=== PATIENT | female | born 1960 | race African-American/Black ===

== ENCOUNTER 2016-09-12 12:18 | Emergency (ER) | payer MEDICAID ==
[~2016-09-12] VITALS: Ht 152.4 cm; Wt 59.0 kg
[~2016-09-12 12:18] MED LIST: ASPI81CH49; LEVO750T3 PO; LIS10T PO; LORA-655; SACC250C PO
[2016-09-12 13:34] LABS: Urine Bilirubin Negative (Negative); Urine Blood TRACE /uL (Negative); Urine Color Yellow (Yellow); Urine Glucose Normal (Normal); Urine Hyaline Cast MANY /lpf (0 - 2); Urine Ketone Negative (Negative); Urine Mucus FEW (None Seen); Urine Nitrite Negative (Negative); Urine RBC 42 /hpf (0 - 4); Urine Squamous Epithelial Cell MANY /hpf (<5); Urine Urobilinogen Normal (Negative); Urine WBC Clumps PRESENT /hpf (None Seen); Urine pH 7.5 (5.0-8.0)
[2016-09-12] MEDS ORDERED: cefTRIAXone 1GM/50ML D5W 50 ML IV ONE (15:45)
[2016-09-12] MEDS ORDERED: KETOROLAC TROMETH 30 MG/ML 1ML VIAL IV ONE (15:45)
[2016-09-12 16:10] VITALS: BP 172/96
== END 2016-09-12 16:24 | disposition home or self-care (01) ==
LOC: EDBD 12:18 → ER 12:18
DX: S16.1XXA Strain of muscle, fascia and tendon at neck level, initial encounter (principal); S50.11XA Contusion of right forearm, initial encounter; S20.211A Contusion of right front wall of thorax, initial encounter; M50.30 Other cervical disc degeneration, unspecified cervical region; N39.0 Urinary tract infection, site not specified; J45.909 Unspecified asthma, uncomplicated; I10 Essential (primary) hypertension; Z90.49 Acquired absence of other specified parts of digestive tract; F17.210 Nicotine dependence, cigarettes, uncomplicated; F12.10 Cannabis abuse, uncomplicated; M25.561 Pain in right knee; V43.62XA Car passenger injured in collision with other type car in traffic accident, initial encounter; Y93.89 Activity, other specified; Y99.8 Other external cause status; Y92.89 Other specified places as the place of occurrence of the external cause
CPT/HCPCS: 71111; 72040; 73080; 73562; 81001; 96365; 96375; 99285; J0696; J1885

== ENCOUNTER 2017-03-20 00:48 | Emergency (ER) | payer MEDICAID ==
[~2017-03-20] VITALS: Ht 154.9 cm; Wt 68.0 kg
[~2017-03-20 00:48] MED LIST changes: +ATOR20TA50 PO; +CIP500T PO; -LEVO750T3 PO; +OMEP20CA74 PO; -SACC250C PO
[2017-03-20 02:01] LABS: Basophils # (auto) 0.1 uL; Eosinophils # (auto) 0.4 uL; Monocytes # (auto) 0.6 uL; Monocytes % (auto) 5.4 % (0.0-12.0); Neutrophils # (auto) 8.6 uL; Nucleated Red Blood Cells % 0.1 %; White Blood Cell 11.8 10^3/uL (4.4-10.8)
[2017-03-20 02:02] LABS: Basophils % (auto) 0.6 % (0.0-2.0); Eosinophils % (auto) 3.7 % (0.0-7.0); Hematocrit 38.2 % (36.0-46.0); Hemoglobin 11.8 g/dL (12.2-16.2); Lymphocytes # (auto) 2.1 uL; Lymphocytes % (auto) 17.4 % (10.0-50.0); Mean Corpuscular Hemoglobin 22.6 pg (28.0-32.0); Mean Corpuscular Hgb Conc. 30.9 g/dL (32.0-36.0); Mean Corpuscular Volume 73.4 fL (80.0-100.0); Neutrophils % (auto) 72.9 % (37.0-80.0); Platelet Count (auto) 238 10^3/uL (140-450); Red Blood Cells 5.21 10^6/uL (4.0-5.20); Red Cell Distribution Width 13.7 % (11.8-14.3)
[2017-03-20 02:09] LABS: Urine Bacteria MOD /hpf (None Seen); Urine Blood Negative /uL (Negative); Urine Mucus FEW (None Seen); Urine Specific Gravity 1.021 (1.001-1.035); Urine WBC 238 /hpf (0 - 5)
[2017-03-20 02:27] LABS: Albumin 3.5 g/dL (3.4-5.0); BUN/Creatinine Ratio 21.5; Bilirubin, Total 0.3 mg/dL (0.2-1.0); Calcium 8.9 mg/dL (8.5-10.1); Potassium 3.3 mmol/L (3.5-5.1); Total Protein 7.3 g/dL (6.4-8.2)
[2017-03-20] MEDS ORDERED: SODIUM CHLORIDE 0.9% 1,000 ML IV ONE (03:00)
[2017-03-20 04:00] VITALS: BP 119/72
[2017-03-20] MEDS ORDERED: cefTRIAXone 1GM/50ML D5W 50 ML IV ONE (04:00)
== END 2017-03-20 05:19 | disposition home or self-care (01) ==
LOC: EDBD 00:48 → ER 00:51
DX: N39.0 Urinary tract infection, site not specified (principal); I10 Essential (primary) hypertension; J45.909 Unspecified asthma, uncomplicated; F17.210 Nicotine dependence, cigarettes, uncomplicated; R51 Headache; Z86.73 Personal history of transient ischemic attack (TIA), and cerebral infarction without residual deficits; Z79.899 Other long term (current) drug therapy
CPT/HCPCS: 36415; 70450; 74176; 80053; 81001; 83690; 83735; 85025; 96365; 99285; J0696; J7030; 93005

== ENCOUNTER 2017-06-17 02:49 | Emergency (ER) | payer MEDICAID ==
[~2017-06-17] VITALS: Ht 160 cm; Wt 54.4 kg
[2017-06-17 03:34] VITALS: BP 130/85
[2017-06-17 03:41] LABS: Eosinophils # (auto) 0.2 uL; Lymphocytes # (auto) 2.9 uL; Monocytes # (auto) 0.5 uL
[2017-06-17 03:42] LABS: Basophils # (auto) 0 uL; Basophils % (auto) 0.7 % (0.0-2.0); Hematocrit 38.6 % (36.0-46.0); Hemoglobin 12.3 g/dL (12.2-16.2); Lymphocytes % (auto) 48.8 % (10.0-50.0); Mean Corpuscular Hemoglobin 23.1 pg (28.0-32.0); Mean Corpuscular Hgb Conc. 31.9 g/dL (32.0-36.0); Mean Corpuscular Volume 72.4 fL (80.0-100.0); Monocytes % (auto) 7.9 % (0.0-12.0); Neutrophils # (auto) 2.3 uL; Neutrophils % (auto) 38.6 % (37.0-80.0); Platelet Count (auto) 193 10^3/uL (140-450); Red Blood Cells 5.33 10^6/uL (4.0-5.20); Red Cell Distribution Width 14.8 % (11.8-14.3); White Blood Cell 5.9 10^3/uL (4.4-10.8)
[2017-06-17 04:07] LABS: Alanine Aminotransferase 16 U/L (13-56); Albumin 3.7 g/dL (3.4-5.0); Alkaline Phosphatase 65 U/L (45-117); Anion Gap 8 (5-15); Aspartate Aminotransferase 10 U/L (15-37); BUN/Creatinine Ratio 32.1; Bilirubin, Total 0.5 mg/dL (0.2-1.0); Blood Alcohol < 3.0 mg/dL (0-5); Blood Urea Nitrogen 18 mg/dL (7-18); Calcium 9.4 mg/dL (8.5-10.1); Carbon Dioxide 28 mmol/L (21-32); Chloride 107 mmol/L (98-107); GFR African American 144 mL/min; GFR Non-African American 119 mL/min; Glucose 96 mg/dL (74-106); Magnesium 2.4 mg/dL (1.6-2.6); Potassium 3.5 mmol/L (3.5-5.1); Sodium 143 mmol/L (136-145); Total Protein 7.4 g/dL (6.4-8.2)
[2017-06-17 04:09] LABS: Acetaminophen < 2.0 ug/mL (10-30); Salicylate < 1.7 mg/dL (2.8-20.0)
[2017-06-17 04:42] LABS: INR 0.98 (0.9-1.15); Prothrombin Time 10.7 sec (9.37-12.3)
== END 2017-06-17 06:04 | disposition home or self-care (01) ==
LOC: EDBD 02:49 → ER 02:52
DX: R41.82 Altered mental status, unspecified (principal); F41.9 Anxiety disorder, unspecified; J45.909 Unspecified asthma, uncomplicated; I10 Essential (primary) hypertension; I25.2 Old myocardial infarction; R51 Headache; F17.210 Nicotine dependence, cigarettes, uncomplicated; Z79.899 Other long term (current) drug therapy; Z79.82 Long term (current) use of aspirin; Z86.73 Personal history of transient ischemic attack (TIA), and cerebral infarction without residual deficits; Z90.49 Acquired absence of other specified parts of digestive tract
CPT/HCPCS: 36415; 70450; 71045; 80053; 80320; 80329; 83735; 83880; 84484; 85025; 85379; 85610; 85730; 93005; 94761

== ENCOUNTER 2017-10-27 00:07 | Inpatient (IN) | payer MEDICAID ==
[~2017-10-27] VITALS: Ht 162.6 cm; Wt 51.8 kg
[2017-10-27 01:00] LABS: Basophils # (auto) 0 uL; Basophils % (auto) 0.2 % (0.0-2.0); Eosinophils # (auto) 0 uL; Eosinophils % (auto) 0.2 % (0.0-7.0); Hematocrit 34.8 % (36.0-46.0); Hemoglobin 10.9 g/dL (12.2-16.2); Lymphocytes # (auto) 1.2 uL; Lymphocytes % (auto) 7.5 % (10.0-50.0); Mean Corpuscular Hemoglobin 22.3 pg (28.0-32.0); Mean Corpuscular Hgb Conc. 31.3 g/dL (32.0-36.0); Mean Corpuscular Volume 71.2 fL (80.0-100.0); Monocytes # (auto) 1.9 uL; Monocytes % (auto) 11.9 % (0.0-12.0); Neutrophils # (auto) 12.8 uL; Neutrophils % (auto) 80.2 % (37.0-80.0); Platelet Count (auto) 209 10^3/uL (140-450); Red Blood Cells 4.89 10^6/uL (4.0-5.20); Red Cell Distribution Width 14.5 % (11.8-14.3)
[2017-10-27 01:19] LABS: Alanine Aminotransferase 17 U/L (13-56); Albumin 2.8 g/dL (3.4-5.0); Anion Gap 10 (5-15); Aspartate Aminotransferase 13 U/L (15-37); BUN/Creatinine Ratio 30.8; Blood Urea Nitrogen 16 mg/dL (7-18); Calcium 8.3 mg/dL (8.5-10.1); Carbon Dioxide 23 mmol/L (21-32); Chloride 106 mmol/L (98-107); GFR African American 156 mL/min; GFR Non-African American 129 mL/min; Glucose 125 mg/dL (74-106); Potassium 3.1 mmol/L (3.5-5.1); Sodium 139 mmol/L (136-145)
[2017-10-27 01:24] LABS: Alkaline Phosphatase 67 U/L (45-117); Total Protein 6.8 g/dL (6.4-8.2)
[2017-10-27] MEDS ORDERED: SODIUM CHLORIDE 0.9% 1,000 ML IV ONE (01:45)
[2017-10-27 02:42] LABS: Urine Bacteria MANY /hpf (None Seen); Urine Blood 1+ /uL (Negative); Urine Mucus FEW (None Seen); Urine Specific Gravity 1.018 (1.001-1.035); Urine WBC 325 /hpf (0 - 5); Urine WBC Clumps PRESENT /hpf (None Seen)
[2017-10-27] MEDS ORDERED: cefTRIAXone 1GM/10ml IVPUSH 10 ML IV ONE (04:00)
[2017-10-27] MEDS ORDERED: ACETAMINOPHEN 500 MG TAB PO PRN (05:45)
[2017-10-27] MEDS: SODIUM CHLORIDE 0.9% 1,000 ML IV SCH ×2 (05:45→21:58)
[2017-10-27] MEDS ORDERED: ONDANSETRON HCL 4 MG/2 ML VIAL IV PRN (05:45)
[2017-10-27] MEDS: PANTOPRAZOLE 40 MG TAB PO SCH (06:00)
[2017-10-27] MEDS: cefTRIAXone 1GM/10ml IVPUSH 10 ML IV SCH (06:00)
[2017-10-27] MEDS ORDERED: POTASSIUM CHL 10% (20 MEQ/15ML) 15ml ORAL SOLN PO ONE (06:00)
[2017-10-27] MEDS ORDERED: LORazepam 0.5 MG TAB PO PRN (06:00)
[2017-10-27 08:27] VITALS: BP 148/75
[2017-10-27 09:00] VITALS: BP 148/75
[2017-10-27] MEDS: ASPirin-EC 81 mg tab PO SCH (10:08)
[2017-10-27] MEDS: HYDROcodone-ACET 5/325MG TAB PO PRN ×2 (10:23→18:32)
[2017-10-27] MEDS: LEVETIRACETAM 500 MG TAB PO SCH ×2 (10:26→21:58)
[2017-10-27 13:00] VITALS: BP 141/90
[2017-10-27 17:00] VITALS: BP 139/90
[2017-10-27 22:00] VITALS: BP 122/79
[2017-10-28 04:00] VITALS: BP 124/83
[2017-10-28] MEDS: PANTOPRAZOLE 40 MG TAB PO SCH (05:53)
[2017-10-28] MEDS: cefTRIAXone 1GM/10ml IVPUSH 10 ML IV SCH (05:53)
[2017-10-28 06:42] LABS: Basophils # (auto) 0 uL; Basophils % (auto) 0.4 % (0.0-2.0); Eosinophils # (auto) 0 uL; Eosinophils % (auto) 0.4 % (0.0-7.0); Hemoglobin 9.4 g/dL (12.2-16.2); Lymphocytes % (auto) 22.4 % (10.0-50.0); Mean Corpuscular Hemoglobin 22.2 pg (28.0-32.0); Mean Corpuscular Hgb Conc. 31.2 g/dL (32.0-36.0); Mean Corpuscular Volume 71.2 fL (80.0-100.0); Monocytes # (auto) 1.3 uL; Monocytes % (auto) 14.2 % (0.0-12.0); Neutrophils # (auto) 5.5 uL; Neutrophils % (auto) 62.6 % (37.0-80.0); Platelet Count (auto) 178 10^3/uL (140-450); Red Blood Cells 4.21 10^6/uL (4.0-5.20); Red Cell Distribution Width 14.3 % (11.8-14.3); White Blood Cell 8.9 10^3/uL (4.4-10.8)
[2017-10-28 07:09] LABS: Potassium 3.7 mmol/L (3.5-5.1)
[2017-10-28 07:16] LABS: BUN/Creatinine Ratio 31.6; Calcium 8.2 mg/dL (8.5-10.1)
[2017-10-28 08:59] VITALS: BP 137/92
[2017-10-28] MEDS: ASPirin-EC 81 mg tab PO SCH (10:17)
[2017-10-28] MEDS: SODIUM CHLORIDE 0.9% 1,000 ML IV SCH (10:23)
[2017-10-28] MEDS ORDERED: LEVETIRACETAM 500 MG/5ML ORAL SOLN UD PO SCH (10:30)
[2017-10-28 13:03] VITALS: BP 125/82
[2017-10-28] MEDS ORDERED: AMOXICILLIN/CLAVUL 875 MG TAB PO SCH (13:30)
[2017-10-28 17:54] VITALS: BP 156/103
[2017-10-28 17:56] VITALS: BP 125/82
== END 2017-10-28 20:25 | disposition home health service (06) | DRG 53 ==
LOC: EDBD 00:07 → ER 00:07 → TELE 00:08 → TELE-EAST 08:27
PROVIDERS: ADMIT Nurse Practitioner Family; ATTEND Internal Medicine
DX: R56.9 Unspecified convulsions (principal); N30.00 Acute cystitis without hematuria; I69.351 Hemiplegia and hemiparesis following cerebral infarction affecting right dominant side; I10 Essential (primary) hypertension; D50.9 Iron deficiency anemia, unspecified; F17.210 Nicotine dependence, cigarettes, uncomplicated; R55 Syncope and collapse; N39.0 Urinary tract infection, site not specified; E78.5 Hyperlipidemia, unspecified; J45.909 Unspecified asthma, uncomplicated; E86.0 Dehydration; E87.6 Hypokalemia; F41.9 Anxiety disorder, unspecified; Z79.899 Other long term (current) drug therapy; Z79.82 Long term (current) use of aspirin; Z82.49 Family history of ischemic heart disease and other diseases of the circulatory system
CPT/HCPCS: 36415; 70450; 71045; 80048; 80053; 81001; 82542; 83605; 83735; 84484; 85025; 87040; 87086; 87088; 87186; 93005; 96361; 96374; 97163

== ENCOUNTER 2020-09-08 15:22 | Inpatient (IN) | payer MEDICAID, OTHER ==
[~2020-09-08] VITALS: Ht 167.6 cm; Wt 35.4 kg
[~2020-09-08 15:22] MED LIST changes: -CIP500T PO
[2020-09-08 17:37] LABS: Basophils # (auto) 0.1 10 ^3/uL (0-0.2); Eosinophils # (auto) 0.1 10 ^3/uL (0-0.8); Hemoglobin 12.4 g/dL (12.2-16.2); Lymphocytes # (auto) 2.1 10 ^3/uL (0.4-5.4); Mean Corpuscular Hemoglobin 22.4 pg (28.0-32.0); Neutrophils # (auto) 10.3 10 ^3/uL (1.6-8.6); White Blood Cell 13.7 10^3/uL (4.4-10.8)
[2020-09-08 17:39] LABS: Basophils % (auto) 0.9 % (0.0-2.0); Hematocrit 40.7 % (36.0-46.0); Lymphocytes % (auto) 15.1 % (10.0-50.0); Mean Corpuscular Hgb Conc. 30.5 g/dL (32.0-36.0); Mean Corpuscular Volume 73.7 fL (80.0-100.0); Monocytes % (auto) 7.5 % (0.0-12.0); Neutrophils % (auto) 75.5 % (37.0-80.0); Nucleated Red Blood Cells % 0.1 %; Red Blood Cells 5.52 10^6/uL (4.0-5.20); Red Cell Distribution Width 16.6 % (11.8-14.3)
[2020-09-08 17:59] LABS: Alanine Aminotransferase 10 U/L (13-56); Albumin 3.5 g/dL (3.4-5.0); Anion Gap 10 (5-15); Aspartate Aminotransferase 11 U/L (15-37); BUN/Creatinine Ratio 111.1; Blood Urea Nitrogen 40 mg/dL (7-18); Calcium 9.8 mg/dL (8.5-10.1); Carbon Dioxide 27 mmol/L (21-32); Chloride 115 mmol/L (98-107); GFR African American 236 mL/min; GFR Non-African American 195 mL/min; Glucose 79 mg/dL (74-106); INR 1.08 (0.9-1.15); Magnesium 2.5 mg/dL (1.6-2.6); Partial Thromboplastin Time 23.2 sec (23.0-31.2); Potassium 3.4 mmol/L (3.5-5.1); Sodium 152 mmol/L (136-145)
[2020-09-08] MEDS ORDERED: DexAMETHasone SOD PHOS 10MG/1ML VIAL INJ IV ONE (18:00)
[2020-09-08] MEDS ORDERED: AZITHROMYCIN 500MG/ 250ML 250 ML IV ONE (18:00)
[2020-09-08] MEDS ORDERED: DOXYCYCLINE 100MG/250ML 250 ML IV ONE (18:00)
[2020-09-08 18:04] LABS: Alkaline Phosphatase 114 U/L (45-117); Bilirubin, Total 0.6 mg/dL (0.2-1.0); Total Protein 8.6 g/dL (6.4-8.2)
[2020-09-08 20:29] LABS: Urine Specific Gravity 1.025 (1.001-1.035)
[2020-09-08 20:31] LABS: Urine Blood 3+ /uL (Negative)
[2020-09-08 20:33] LABS: Urine Bacteria MANY /hpf (None Seen); Urine Mucus MANY (None Seen); Urine WBC 881 /hpf (0 - 5)
[2020-09-08] MEDS ORDERED: NITROGLYCERIN 0.4 MG SL TAB SL PRN (23:15)
[2020-09-08] MEDS ORDERED: ALBUTEROL SULF HFA 90MCG INH 200DOSE IN PRN (23:15)
[2020-09-08] MEDS ORDERED: ONDANSETRON HCL 4 MG/2 ML VIAL IV PRN (23:15)
[2020-09-08] MEDS ORDERED: MORPHINE SULFATE INJECTION 2 MG/ML SYRG IV PRN (23:15)
[2020-09-08] MEDS ORDERED: ACETAMINOPHEN 500 MG TAB PO PRN (23:15)
[2020-09-08] MEDS ORDERED: HYDROcodone-ACET 5/325MG TAB PO PRN (23:15)
[2020-09-09] VITALS (8 sets, daily range): BP systolic 140–161; BP diastolic 92–118
[2020-09-09] MEDS: D5W 5% 1,000 ML IV SCH ×2 (02:42→15:52)
[2020-09-09] MEDS ORDERED: BACL10TA PO (06:21)
[2020-09-09] MEDS ORDERED: NIFE10CA3 PO (06:21)
[2020-09-09] MEDS ORDERED: LEVE500T3 PO (06:21)
[2020-09-09] MEDS ORDERED: SIMV-13 PO (06:21)
[2020-09-09] MEDS ORDERED: LACT10PA2 PO (06:21)
[2020-09-09] MEDS ORDERED: TRAZ-181 PO (06:21)
[2020-09-09 07:13] LABS: Basophils # (auto) 0 10 ^3/uL (0-0.2); Basophils % (auto) 0.2 % (0.0-2.0); Eosinophils # (auto) 0 10 ^3/uL (0-0.8); Eosinophils % (auto) 0.1 % (0.0-7.0); Hematocrit 35.3 % (36.0-46.0); Hemoglobin 10.9 g/dL (12.2-16.2); Lymphocytes # (auto) 2.1 10 ^3/uL (0.4-5.4); Mean Corpuscular Hemoglobin 22.7 pg (28.0-32.0); Mean Corpuscular Hgb Conc. 30.8 g/dL (32.0-36.0); Mean Corpuscular Volume 73.6 fL (80.0-100.0); Monocytes % (auto) 7.7 % (0.0-12.0); Neutrophils # (auto) 9.4 10 ^3/uL (1.6-8.6); Nucleated Red Blood Cells % 0.1 %; Red Blood Cells 4.79 10^6/uL (4.0-5.20); Red Cell Distribution Width 16.4 % (11.8-14.3); White Blood Cell 12.5 10^3/uL (4.4-10.8)
[2020-09-09 07:23] LABS: Chloride 117 mmol/L (98-107); Sodium 149 mmol/L (136-145)
[2020-09-09 07:25] LABS: Albumin 2.9 g/dL (3.4-5.0); Anion Gap 8 (5-15); Blood Urea Nitrogen 28 mg/dL (7-18); Calcium 8.5 mg/dL (8.5-10.1); Carbon Dioxide 24 mmol/L (21-32); Glucose 104 mg/dL (74-106)
[2020-09-09 07:34] LABS: Alanine Aminotransferase 9 U/L (13-56); Alkaline Phosphatase 97 U/L (45-117); Aspartate Aminotransferase 11 U/L (15-37); BUN/Creatinine Ratio 133.3; Bilirubin, Total 0.5 mg/dL (0.2-1.0); GFR African American 440 mL/min; GFR Non-African American 364 mL/min; Total Protein 7.1 g/dL (6.4-8.2)
[2020-09-09] MEDS: HEPARIN SODIUM (PORCINE) 5000 UNITS/ML 1ML VIAL SC SCH ×2 (09:04→23:00)
[2020-09-09] MEDS: cefTRIAXone 1GM/50ML D5W 50 ML IV SCH (09:22)
[2020-09-09] MEDS: ASCORBIC ACID 1,000 MG TAB PO SCH (09:22)
[2020-09-09] MEDS: ZINC SULFATE 220mg CAP or TAB PO SCH (09:22)
[2020-09-09] MEDS: CHOLECALCIFEROL (VITD3) 2,000 UNIT CAP/TAB PO SCH (09:22)
[2020-09-09] MEDS: MULTIPLE VITAMIN TAB PO SCH (09:23)
[2020-09-09] MEDS: DexAMETHasone SOD PHOS 10MG/1ML VIAL INJ IV SCH (09:23)
[2020-09-09] MEDS: FAMOTIDINE (10MG/ML) 2ML VL IV SCH ×2 (09:23→22:59)
[2020-09-09] MEDS: DOXYCYCLINE 100MG/250ML 250 ML IV SCH ×2 (09:24→22:59)
[2020-09-09] MEDS ORDERED: BUDESONIDE (INHALATION) 180 MCG IH IN SCH (10:00)
[2020-09-09] MEDS ORDERED: NIFEdipine 10 MG CAP PO ONE (12:45)
[2020-09-09] MEDS ORDERED: NIFEdipine ER 30 MG TAB PO ONE (12:45)
[2020-09-09] MEDS: hydrALAZINE HCL 20 MG/ML VL IV PRN (12:49)
[2020-09-09] MEDS: POTASSIUM CHL 20MEQ/100ML 100 ML IV SCH ×2 (15:52→17:09)
[2020-09-09] MEDS: BUDESONIDE (INHALATION) 0.5 MG/2 ML NEB NEB SCH (22:48)
[2020-09-10] VITALS (7 sets, daily range): BP systolic 115–145; BP diastolic 77–96
[2020-09-10] MEDS: BUDESONIDE (INHALATION) 0.5 MG/2 ML NEB NEB SCH ×2 (06:33→19:06)
[2020-09-10] MEDS: ALBUTEROL SULF 2.5 MG/0.5ML(0.5%) NEB SOLN NEB PRN (06:33)
[2020-09-10 07:11] LABS: Basophils # (auto) 0 10 ^3/uL (0-0.2); Eosinophils # (auto) 0.2 10 ^3/uL (0-0.8); White Blood Cell 12.8 10^3/uL (4.4-10.8)
[2020-09-10 07:15] LABS: Basophils % (auto) 0.4 % (0.0-2.0); Eosinophils % (auto) 1.3 % (0.0-7.0); Hematocrit 32.9 % (36.0-46.0); Hemoglobin 10.2 g/dL (12.2-16.2); Lymphocytes # (auto) 3.5 10 ^3/uL (0.4-5.4); Lymphocytes % (auto) 27.2 % (10.0-50.0); Mean Corpuscular Hemoglobin 22.5 pg (28.0-32.0); Mean Corpuscular Hgb Conc. 30.9 g/dL (32.0-36.0); Mean Corpuscular Volume 72.8 fL (80.0-100.0); Monocytes # (auto) 0.9 10 ^3/uL (0-1.3); Monocytes % (auto) 7.3 % (0.0-12.0); Neutrophils # (auto) 8.2 10 ^3/uL (1.6-8.6); Neutrophils % (auto) 63.8 % (37.0-80.0); Nucleated Red Blood Cells % 0.1 %; Red Blood Cells 4.52 10^6/uL (4.0-5.20); Red Cell Distribution Width 16.4 % (11.8-14.3)
[2020-09-10 07:24] LABS: Calcium 8.3 mg/dL (8.5-10.1); Potassium 3.2 mmol/L (3.5-5.1)
[2020-09-10] MEDS: D5W 5% 1,000 ML IV SCH ×2 (07:26→15:45)
[2020-09-10 07:27] LABS: BUN/Creatinine Ratio 56.5
[2020-09-10] MEDS: HEPARIN SODIUM (PORCINE) 5000 UNITS/ML 1ML VIAL SC SCH ×2 (09:59→21:19)
[2020-09-10] MEDS: cefTRIAXone 1GM/50ML D5W 50 ML IV SCH (10:12)
[2020-09-10] MEDS: ASCORBIC ACID 1,000 MG TAB PO SCH (10:13)
[2020-09-10] MEDS: NIFEdipine ER 30 MG TAB PO SCH (10:13)
[2020-09-10] MEDS: CHOLECALCIFEROL (VITD3) 2,000 UNIT CAP/TAB PO SCH (10:14)
[2020-09-10] MEDS: DexAMETHasone SOD PHOS 10MG/1ML VIAL INJ IV SCH (10:14)
[2020-09-10] MEDS: MULTIPLE VITAMIN TAB PO SCH (10:14)
[2020-09-10] MEDS: ZINC SULFATE 220mg CAP or TAB PO SCH (10:14)
[2020-09-10] MEDS: FAMOTIDINE (10MG/ML) 2ML VL IV SCH ×2 (10:14→21:19)
[2020-09-10] MEDS: DOXYCYCLINE 100MG/250ML 250 ML IV SCH ×2 (10:15→21:18)
[2020-09-10] MEDS: POTASSIUM CHL 20MEQ/100ML 100 ML IV SCH ×2 (14:12→16:00)
[2020-09-10] MEDS ORDERED: IOHEXOL 350 MG/ML 100ML IJ ONE (15:38)
[2020-09-10] MEDS ORDERED: LORazepam 2MG/ML-1ML VIAL IV PRN (21:15)
[2020-09-10] MEDS ORDERED: levETIRAcetam 500 MG/5ML INJ IV ONE (22:23)
[2020-09-11] MEDS: D5W 5% 1,000 ML IV SCH ×2 (04:15→17:46)
[2020-09-11 05:00] VITALS: BP 146/102
[2020-09-11 06:07] LABS: Hematocrit 34.8 % (36.0-46.0); Hemoglobin 10.8 g/dL (12.2-16.2); Mean Corpuscular Hemoglobin 22.7 pg (28.0-32.0); Mean Corpuscular Hgb Conc. 30.9 g/dL (32.0-36.0); Mean Corpuscular Volume 73.6 fL (80.0-100.0); Red Blood Cells 4.73 10^6/uL (4.0-5.20); Red Cell Distribution Width 16.3 % (11.8-14.3); White Blood Cell 13.7 10^3/uL (4.4-10.8)
[2020-09-11 06:24] LABS: Basophils % (manual) 0 (0.0-2.0); Blast Cells 0; Metamyelocytes % 0; Myelocytes % 0; Promyelocytes % 0; Reactive Lymphocytes 0
[2020-09-11 06:25] LABS: Potassium 3.4 mmol/L (3.5-5.1)
[2020-09-11 06:34] LABS: BUN/Creatinine Ratio 23.3; Calcium 8.5 mg/dL (8.5-10.1)
[2020-09-11 07:04] LABS: Band Neutrophils % (manual) 1; Eosinophils % (manual) 3 (0-7); Lymphocytes % (manual) 38 (10.0-50.0); Monocytes % (manual) 4 (0-12)
[2020-09-11] MEDS: BUDESONIDE (INHALATION) 0.5 MG/2 ML NEB NEB SCH ×2 (07:51→22:30)
[2020-09-11] MEDS: ALBUTEROL SULF 2.5 MG/0.5ML(0.5%) NEB SOLN NEB PRN ×2 (07:51→22:30)
[2020-09-11 09:00] VITALS: BP 136/83
[2020-09-11] MEDS: ZINC SULFATE 220mg CAP or TAB PO SCH (10:00)
[2020-09-11] MEDS: ASCORBIC ACID 1,000 MG TAB PO SCH (10:00)
[2020-09-11] MEDS: MULTIPLE VITAMIN TAB PO SCH (10:00)
[2020-09-11] MEDS: CHOLECALCIFEROL (VITD3) 2,000 UNIT CAP/TAB PO SCH (10:00)
[2020-09-11] MEDS: NIFEdipine ER 30 MG TAB PO SCH (10:00)
[2020-09-11] MEDS: DexAMETHasone SOD PHOS 10MG/1ML VIAL INJ IV SCH (10:46)
[2020-09-11] MEDS: cefTRIAXone 1GM/50ML D5W 50 ML IV SCH (10:46)
[2020-09-11] MEDS: DOXYCYCLINE 100MG/250ML 250 ML IV SCH ×2 (10:47→21:47)
[2020-09-11] MEDS: FAMOTIDINE (10MG/ML) 2ML VL IV SCH ×2 (10:47→21:48)
[2020-09-11] MEDS: HEPARIN SODIUM (PORCINE) 5000 UNITS/ML 1ML VIAL SC SCH ×2 (10:48→21:48)
[2020-09-11 13:00] VITALS: BP 136/96
[2020-09-11] MEDS ORDERED: IOHEXOL 350 MG/ML 100ML IJ ONE (16:53)
[2020-09-11 17:00] VITALS: BP 150/101
[2020-09-11 21:32] VITALS: BP 150/99
[2020-09-11] MEDS: hydrALAZINE HCL 20 MG/ML VL IV PRN (21:57)
[2020-09-12 04:15] VITALS: BP 161/100
[2020-09-12 05:31] VITALS: BP 136/88
[2020-09-12 06:07] LABS: White Blood Cell 13.5 10^3/uL (4.4-10.8)
[2020-09-12 06:10] LABS: Hematocrit 38.5 % (36.0-46.0); Hemoglobin 12.1 g/dL (12.2-16.2); Mean Corpuscular Hgb Conc. 31.6 g/dL (32.0-36.0); Mean Corpuscular Volume 72.7 fL (80.0-100.0); Red Blood Cells 5.29 10^6/uL (4.0-5.20); Red Cell Distribution Width 16.1 % (11.8-14.3)
[2020-09-12 06:28] LABS: Albumin 2.9 g/dL (3.4-5.0); Calcium 8.4 mg/dL (8.5-10.1)
[2020-09-12 06:31] LABS: BUN/Creatinine Ratio 14.3; Basophils % (manual) 0 (0.0-2.0); Bilirubin, Total 0.4 mg/dL (0.2-1.0); Blast Cells 0; CRP High Sensitivity 0.58 mg/dL (< 0.3); Metamyelocytes % 0; Myelocytes % 0; Promyelocytes % 0; Reactive Lymphocytes 0
[2020-09-12 06:33] LABS: Potassium 2.6 mmol/L (3.5-5.1)
[2020-09-12] MEDS: ALBUTEROL SULF 2.5 MG/0.5ML(0.5%) NEB SOLN NEB PRN ×2 (07:14→22:08)
[2020-09-12] MEDS: BUDESONIDE (INHALATION) 0.5 MG/2 ML NEB NEB SCH ×2 (07:14→22:08)
[2020-09-12] MEDS: POTASSIUM CHL 20MEQ/100ML 100 ML IV SCH ×3 (07:19→11:50)
[2020-09-12 07:41] LABS: Band Neutrophils % (manual) 3; Eosinophils % (manual) 1 (0-7); Lymphocytes % (manual) 21 (10.0-50.0); Monocytes % (manual) 8 (0-12)
[2020-09-12] MEDS ORDERED: LIDOCAINE VISCOUS 2% 15ML UD ONE (08:06)
[2020-09-12] MEDS ORDERED: SODIUM CHLORIDE LOCK 10 ML ONE (08:06)
[2020-09-12] MEDS ORDERED: MIDAZOLAM HCL 5 MG/ML-1ML VIAL ONE (08:07)
[2020-09-12] MEDS ORDERED: diphenhdrAMINE HCL 50 MG/1 ML VL ONE (08:07)
[2020-09-12] MEDS ORDERED: fentaNYL CITRATE 100 MCG/2 ML VL ONE (08:07)
[2020-09-12] MEDS: D5W 5% 1,000 ML IV SCH ×2 (08:25→21:05)
[2020-09-12 09:00] VITALS: BP 107/80
[2020-09-12] MEDS: DexAMETHasone SOD PHOS 10MG/1ML VIAL INJ IV SCH (09:49)
[2020-09-12] MEDS: FAMOTIDINE (10MG/ML) 2ML VL IV SCH ×2 (09:49→21:32)
[2020-09-12] MEDS: MULTIPLE VITAMIN TAB PO SCH (09:50)
[2020-09-12] MEDS: ASCORBIC ACID 1,000 MG TAB PO SCH (09:50)
[2020-09-12] MEDS: NIFEdipine ER 30 MG TAB PO SCH (09:50)
[2020-09-12] MEDS: ZINC SULFATE 220mg CAP or TAB PO SCH (09:50)
[2020-09-12] MEDS: CHOLECALCIFEROL (VITD3) 2,000 UNIT CAP/TAB PO SCH (09:51)
[2020-09-12] MEDS: cefTRIAXone 1GM/50ML D5W 50 ML IV SCH (10:08)
[2020-09-12] MEDS: HEPARIN SODIUM (PORCINE) 5000 UNITS/ML 1ML VIAL SC SCH ×2 (10:36→21:56)
[2020-09-12] MEDS: DOXYCYCLINE 100MG/250ML 250 ML IV SCH ×2 (11:50→22:00)
[2020-09-12 13:00] VITALS: BP 148/111
[2020-09-12 17:00] VITALS: BP 140/106
[2020-09-12 22:00] VITALS: BP 155/105
[2020-09-13 04:31] VITALS: BP 123/80
[2020-09-13] MEDS: ALBUTEROL SULF 2.5 MG/0.5ML(0.5%) NEB SOLN NEB PRN ×2 (06:19→23:56)
[2020-09-13] MEDS: BUDESONIDE (INHALATION) 0.5 MG/2 ML NEB NEB SCH ×2 (06:19→23:56)
[2020-09-13] MEDS ORDERED: SODIUM CHLORIDE LOCK 10 ML ONE (08:06)
[2020-09-13] MEDS ORDERED: diphenhdrAMINE HCL 50 MG/1 ML VL ONE (08:06)
[2020-09-13] MEDS ORDERED: LIDOCAINE VISCOUS 2% 15ML UD ONE (08:06)
[2020-09-13] MEDS ORDERED: fentaNYL CITRATE 100 MCG/2 ML VL ONE (08:06)
[2020-09-13] MEDS ORDERED: MIDAZOLAM HCL 5 MG/ML-1ML VIAL ONE (08:07)
[2020-09-13 08:32] VITALS: BP 127/88
[2020-09-13] MEDS: DOXYCYCLINE 100MG/250ML 250 ML IV SCH ×2 (09:07→21:48)
[2020-09-13] MEDS: DexAMETHasone SOD PHOS 10MG/1ML VIAL INJ IV SCH (09:07)
[2020-09-13] MEDS: FAMOTIDINE (10MG/ML) 2ML VL IV SCH ×2 (09:07→21:48)
[2020-09-13] MEDS: cefTRIAXone 1GM/50ML D5W 50 ML IV SCH (09:07)
[2020-09-13] MEDS: MULTIPLE VITAMIN TAB PO SCH (09:07)
[2020-09-13] MEDS: ZINC SULFATE 220mg CAP or TAB PO SCH (09:07)
[2020-09-13] MEDS: NIFEdipine ER 30 MG TAB PO SCH (09:08)
[2020-09-13] MEDS: HEPARIN SODIUM (PORCINE) 5000 UNITS/ML 1ML VIAL SC SCH ×2 (09:09→21:48)
[2020-09-13] MEDS: ASCORBIC ACID 1,000 MG TAB PO SCH (09:09)
[2020-09-13] MEDS: CHOLECALCIFEROL (VITD3) 2,000 UNIT CAP/TAB PO SCH (09:09)
[2020-09-13] MEDS: D5W 5% 1,000 ML IV SCH (10:25)
[2020-09-13] MEDS ORDERED: POTASSIUM CHL 20MEQ/100ML 100 ML IV ONE (10:45)
[2020-09-13] MEDS ORDERED: CHOL1CAP47 PO (11:02)
[2020-09-13] MEDS ORDERED: ZINC220T6 PO (11:02)
[2020-09-13] MEDS ORDERED: ALB5IS NEB (11:02)
[2020-09-13] MEDS ORDERED: ASCO10003 PO (11:02)
[2020-09-13] MEDS ORDERED: DOXY-338 PO (11:02)
[2020-09-13 11:20] VITALS: BP 141/91
[2020-09-13 17:00] VITALS: BP 140/99
[2020-09-13 22:00] VITALS: BP 154/107
[2020-09-14] MEDS: D5W 5% 1,000 ML IV SCH ×2 (01:49→13:05)
[2020-09-14 05:00] VITALS: BP 151/90
[2020-09-14] MEDS: ALBUTEROL SULF 2.5 MG/0.5ML(0.5%) NEB SOLN NEB PRN (08:48)
[2020-09-14] MEDS: BUDESONIDE (INHALATION) 0.5 MG/2 ML NEB NEB SCH (08:48)
[2020-09-14 09:00] VITALS: BP 166/87
[2020-09-14] MEDS: cefTRIAXone 1GM/50ML D5W 50 ML IV SCH (09:43)
[2020-09-14] MEDS: DexAMETHasone SOD PHOS 10MG/1ML VIAL INJ IV SCH (09:44)
[2020-09-14] MEDS: HEPARIN SODIUM (PORCINE) 5000 UNITS/ML 1ML VIAL SC SCH (09:54)
[2020-09-14] MEDS: FAMOTIDINE (10MG/ML) 2ML VL IV SCH (09:54)
[2020-09-14] MEDS: ZINC SULFATE 220mg CAP or TAB PO SCH (10:00)
[2020-09-14] MEDS: CHOLECALCIFEROL (VITD3) 2,000 UNIT CAP/TAB PO SCH (10:00)
[2020-09-14] MEDS: MULTIPLE VITAMIN TAB PO SCH (10:00)
[2020-09-14] MEDS: ASCORBIC ACID 1,000 MG TAB PO SCH (10:00)
[2020-09-14] MEDS: NIFEdipine ER 30 MG TAB PO SCH (10:00)
[2020-09-14] MEDS ORDERED: Jevity 1.2 Cal/Fiber 1 Liter GT SCH (11:15)
[2020-09-14] MEDS ORDERED: amLODIPine BESYLATE 5 MG TAB PEG SCH (12:52)
[2020-09-14 13:00] VITALS: BP 147/88
[2020-09-14 17:07] VITALS: BP 143/88
== END 2020-09-14 18:45 | disposition hospice, home (50) | DRG 137 ==
LOC: ER 15:22 → EDBD 15:22 → TELE-EAST 23:22 → MERGE 23:22 → TELE-EAST 09-09 00:38
PROVIDERS: ADMIT Nurse Practitioner Family; ATTEND Internal Medicine
PROC: 0DH63UZ Insertion of Feeding Device into Stomach, Percutaneous Approach (ICD-10-PCS; 2020-09-13)
PROC: 0DB68ZX Excision of Stomach, Via Natural or Artificial Opening Endoscopic, Diagnostic (ICD-10-PCS; principal; 2020-09-13 11:45)
DX: U07.1 COVID-19 (principal); J96.01 Acute respiratory failure with hypoxia; J12.82 Pneumonia due to coronavirus disease 2019; G82.50 Quadriplegia, unspecified; G93.41 Metabolic encephalopathy; R13.10 Dysphagia, unspecified; N17.9 Acute kidney failure, unspecified; E87.0 Hyperosmolality and hypernatremia; L89.90 Pressure ulcer of unspecified site, unspecified stage; I69.351 Hemiplegia and hemiparesis following cerebral infarction affecting right dominant side; R47.01 Aphasia; K31.7 Polyp of stomach and duodenum; I10 Essential (primary) hypertension; N39.0 Urinary tract infection, site not specified; E87.6 Hypokalemia; Z74.01 Bed confinement status; F17.200 Nicotine dependence, unspecified, uncomplicated; Z82.49 Family history of ischemic heart disease and other diseases of the circulatory system; Z78.9 Other specified health status; Z79.899 Other long term (current) drug therapy; M89.58 Osteolysis, other site
CPT/HCPCS: 36415; 43239; 51702; 70450; 71045; 71275; 80048; 80053; 81001; 82728; 83036; 83605; 83615; 83735; 83880; 84132; 84484; 85007; 85025; 85027; 85379; 85610; 85730; 86141; 86850; 86900; 86901; 87040; 87086; 87426; 92610; 93005; 93886; 93970; 94640; 95819; 96365; 96366; 96368; 96375; G0378; J0696; J1100; J2250; J3480; J3490; J7042; J7060